=== PATIENT | male | born 1960 | race Two or more races ===

== ENCOUNTER 2020-12-21 08:19 | Day surgery (SDC) | payer OTHER ==
[~2020-12-21 08:19] MED LIST: ADULT LOW DOSE81 M1 PO; ALPRAZOLAM XR0.5 MG PO; BUSPIRONE HCL7.5 MG PO
== END 2020-12-21 19:40 | disposition home or self-care (01) ==
LOC: CIR.AMB 08:19
PROVIDERS: ATTEND Colon & Rectal Surgery
DX: K64.4 Residual hemorrhoidal skin tags (principal); K64.8 Other hemorrhoids